=== PATIENT | female | born 1990 | race Caucasian/White ===

== ENCOUNTER 2024-01-25 11:22 | Emergency (ER) | payer BC ==
[~2024-01-25] VITALS: Ht 157.5 cm; Wt 69.1 kg
[2024-01-25] MEDS ORDERED: SPIR-37 PO (11:37)
[2024-01-25 11:38] VITALS: TEMP 98.6
[2024-01-25] MEDS ORDERED: SPIR50TA27 PO (11:47)
[2024-01-25] MEDS ORDERED: SEMA1PEN3 SQ (11:47)
[2024-01-25 12:57] LABS: COVID AG,FIA SOURCE NASAL SWAB
[2024-01-25 13:31] LABS: INFLUENZA TYPE A NEGATIVE FOR TYPE A (NEGATIVE); INFLUENZA TYPE B NEGATIVE FOR TYPE B (NEGATIVE); SARS-COV2 (COVID) ANTIGEN,FIA Negative (Negative)
[2024-01-25 13:46] LABS: TROPONIN I-HIGH SENSITIVITY Less Than 4 ng/L (<51)
[2024-01-25] MEDS ORDERED: AMOX500C2 PO (14:28)
[2024-01-25] MEDS ORDERED: PRED-554 PO (14:28)
[2024-01-25 14:59] VITALS: BP 130/90; PULSE 96; RESP 18; O2SAT 96
== END 2024-01-25 14:59 | disposition home or self-care (01) ==
LOC: EMS 11:27
DX: J32.9 Chronic sinusitis, unspecified (principal); R07.89 Other chest pain; I10 Essential (primary) hypertension; F17.210 Nicotine dependence, cigarettes, uncomplicated; Z98.890 Other specified postprocedural states; Z20.822 Contact with and (suspected) exposure to COVID-19
CPT/HCPCS: 84484; 87804; 93005; 99284